=== PATIENT | male | born 1950 | race African-American/Black ===

== ENCOUNTER 2016-03-17 16:32 | Inpatient (IN) | payer OTHER ==
[~2016-03-17] VITALS: Ht 175.3 cm; Wt 68.2 kg
[2016-03-17 17:31] LABS: BASOPHILS 0.3 % (0.0-2.0); EOSINOPHILS 1.7 % (0-7); HEMATOCRIT 44.5 % (42.0-54.0); HEMOGLOBIN 14.7 g/dL (13.5-17.5); IMMATURE GRANULOCYTES 0.6 % (0-5); LYMPHOCYTES 21.3 % (15-50); MCV 96.7 fL (80.0-100.0); MEAN PLATELET VOLUME 10.7 fL (7.4-10.4); MONOCYTES 6.1 % (2-11); PLATELET COUNT 201 10x3/uL (130-400); RDW 14.4 % (11.5-14.5); WBC 7.2 10x3/uL (4.8-10.8)
[2016-03-17 17:59] LABS: ALBUMIN 4.2 g/dL (3.4-5.0); ALKALINE PHOSPHATASE 61 U/L (46-116); ALT (SGPT) 25 U/L (10-68); BILIRUBIN - TOTAL 0.47 mg/dL (0.2-1.3); CALC OSMOLALITY 282 mosm/kg (275-300); CALCIUM 8.9 mg/dL (8.5-10.1); CARBON DIOXIDE 31.8 mmol/L (21.0-32.0); CHLORIDE - SERUM 104 mmol/L (98-107); CREATININE - SERUM 0.8 mg/dL (0.6-1.3); GLUCOSE 91 mg/dL (74-106); PROTEIN - SERUM 7.3 g/dL (6.4-8.2); SODIUM 142 mmol/L (136-145); UREA NITROGEN 12 mg/dL (7-18); eGFR NON AFRICAN AMERICAN > 90 mL/min (90-120)
[2016-03-17 18:55] LABS: CREATINE KINASE 416 UL (21-232); PRO BNP 398 pg/mL (0-125)
[2016-03-17 18:56] LABS: TROPONIN-I < 0.017 ng/mL (0.000-0.060)
[2016-03-17 18:57] LABS: CKMB 3.9 U/L (0.0-3.6)
--- NOTE | 2016-03-17 19:50 | NUR ---
RECEIVED PATIENT FROM ER. NO VISIBLE SIGNS OF DISTRESS. BED IN LOWEST POSTION, CALL LIGHT WITHIN REACH, FALL BAND ON, AND BED ALARM ON.
[2016-03-18 03:51] VITALS: BP 196/108; Ht 175.3 cm; Wt 68.2 kg
[2016-03-18 04:00] VITALS: BP 147/80
[2016-03-18 08:09] VITALS: BP 136/76
--- NOTE | 2016-03-18 08:16 | NUR ---
AWAKE AND ALERT. ORIENTED X3. NO C/O THIS AM. LUNGS ARE CLEAR BILATERALLY, NO COUGH NOTED. SKIN IS INTACT WITHOUT REDNESS EXCEPT ABRASIONS TO BACK OF HEAD, LEFT ELBOW AND SHOULDER. DENIES NEEDS. SL TO LEFT FOREARM IS PATENT WITHOUT REDNESS AT INSERTION SITE.
--- NOTE | 2016-03-18 10:00 | NUR ---
ATE ALL HE WANTED OF BREAKFAST. DENIES NEEDS. TOOK AM MEDS WITHOUT DIFFICULTY. FAMILY AT BEDSIDE.
[2016-03-18 11:33] LABS: BASOPHILS 0.1 % (0.0-2.0); EOSINOPHILS 0.6 % (0-7); HEMATOCRIT 44.7 % (42.0-54.0); HEMOGLOBIN 15.1 g/dL (13.5-17.5); IMMATURE GRANULOCYTES 0.1 % (0-5); LYMPHOCYTES 23.4 % (15-50); MCH 32.3 pg (26.0-34.0); MCHC 33.8 g/dL (31.0-37.0); MCV 95.5 fL (80.0-100.0); MEAN PLATELET VOLUME 10.5 fL (7.4-10.4); MONOCYTES 6.6 % (2-11); NEUTROPHILS 69.2 % (40-80); PLATELET COUNT 214 10x3/uL (130-400); RBC 4.68 10x6/uL (4.20-6.10); RDW 14.5 % (11.5-14.5); WBC 7.1 10x3/uL (4.8-10.8)
[2016-03-18 11:39] LABS: ALKALINE PHOSPHATASE 61 U/L (46-116); ALT (SGPT) 22 U/L (10-68); CALC OSMOLALITY 279 mosm/kg (275-300); CALCIUM 9.1 mg/dL (8.5-10.1); CARBON DIOXIDE 26.8 mmol/L (21.0-32.0); CHLORIDE - SERUM 103 mmol/L (98-107); GLUCOSE 89 mg/dL (74-106); POTASSIUM - SERUM 3.6 mmol/L (3.5-5.1); PROTEIN - SERUM 7.4 g/dL (6.4-8.2); SODIUM 141 mmol/L (136-145); UREA NITROGEN 13 mg/dL (7-18); eGFR NON AFRICAN AMERICAN 80 mL/min (90-120)
[2016-03-18 11:44] VITALS: BP 143/71
[2016-03-18 15:55] VITALS: BP 118/82
--- NOTE | 2016-03-18 16:40 | NUR ---
Patient Name: SANFORD GUALLPA Admission Status: ER Accout number: [id number] Admission Date: 03-17-2016 : 1950 Admission Diagnosis: Attending: CRISTOBAL Current LOS: 1 Anticipated DC Date: 03-20-2016 Planned Disposition: Home Primary Insurance: MULTIPLAN Discharge Planning Comments: CM MET WITH PATIENT AND SISTER (SYEDA MASCORRO) REGARDING D/C NEEDS AND PLANS. PATIENTS SISTER ANSWERED QUESTIONS - PATIENT WAS SLEEPING. PATIENT HAS NO STEPS OR STAIRS AT HIS HOME. PATIENT IS INDEPENDENT WITH HIS CARE AND HAS NO DME AT HOME. PATIENTS PCP IS AT THE [facility] IN [place] AND PHARMACY WILL BE [facility]. PATIENT DOES NOT KNOW IF HOME HEALTH MIGHT BE NEEDED. CM WILL CONTINUE TO FOLLOW PATIENT WITH D/C NEEDS AND PLANS. [facility] [address] [facility]- [phone] SYEDA MASCORRO (SISTER) [phone] [employer]ding Equipment Sales Representative: Annamarie Ruff Is the patient Alert and Oriented? Yes 0 * How many steps to enter\exit or inside your home? 0 0 * [facility] [place] [facility] * Pharmacy [facility] 0 * Preadmission Environment Home Alone 0 * ADLs Independent 0 * Equipment None 0 * List name and contact numbers for known caregivers / representatives who currently or will assist patient after discharge: SYEDA MASCORRO (SISTER) [phone] * Community resources currently utilized None 0 * Additional services required to return to the preadmission environment? Yes 0 * Can the patient safely return to the preadmission environment? Yes 0 * Has this patient been hospitalized within the prior 30 days at any hospital? No 0 Grand Total: 0
[2016-03-18 21:14] VITALS: BP 143/74
--- NOTE | 2016-03-19 03:00 | NUR ---
PATIENT SLEEPING IN SEMI-FOWLERS POSITION. NO VISIBLE SIGNS OF DISTRESS.
[2016-03-19 04:00] VITALS: BP 156/83
[2016-03-19 06:07] LABS: BASOPHILS 0.2 % (0.0-2.0); EOSINOPHILS 2.2 % (0-7); HEMATOCRIT 44.2 % (42.0-54.0); IMMATURE GRANULOCYTES 0.2 % (0-5); LYMPHOCYTES 33.1 % (15-50); MCH 32.1 pg (26.0-34.0); MCHC 33.9 g/dL (31.0-37.0); MCV 94.4 fL (80.0-100.0); MEAN PLATELET VOLUME 10.5 fL (7.4-10.4); NEUTROPHILS 55.3 % (40-80); PLATELET COUNT 207 10x3/uL (130-400); RBC 4.68 10x6/uL (4.20-6.10); RDW 14.2 % (11.5-14.5)
[2016-03-19 06:38] LABS: ALBUMIN 3.6 g/dL (3.4-5.0); ALKALINE PHOSPHATASE 54 U/L (46-116); ALT (SGPT) 20 U/L (10-68); BILIRUBIN - TOTAL 0.58 mg/dL (0.2-1.3); CALC OSMOLALITY 278 mosm/kg (275-300); CALCIUM 8.5 mg/dL (8.5-10.1); CARBON DIOXIDE 29.9 mmol/L (21.0-32.0); CHLORIDE - SERUM 104 mmol/L (98-107); CKMB 2.1 U/L (0.0-3.6); CREATINE KINASE 259 UL (21-232); CREATININE - SERUM 0.9 mg/dL (0.6-1.3); GLUCOSE 79 mg/dL (74-106); POTASSIUM - SERUM 4.2 mmol/L (3.5-5.1); PROTEIN - SERUM 6.6 g/dL (6.4-8.2); SODIUM 140 mmol/L (136-145); TROPONIN-I < 0.017 ng/mL (0.000-0.060); UREA NITROGEN 15 mg/dL (7-18); eGFR NON AFRICAN AMERICAN 90 mL/min (90-120)
--- NOTE | 2016-03-19 07:00 | NUR ---
REPORT RECIEVED ASSUMED CARE. PATIENT IN BED WITH IV INTACT. NO COMPLAINTS AT THIS TIME. CALL LIGHT WITHIN REACH.
--- NOTE | 2016-03-19 07:00 | NUR ---
REPORT RECIEVED ASSUMED CARE. PATIENT IN BED WITH IV INTACT. NO COMPLAINTS AT THIS TIME. CALL LIGHT WITHIN REACH.
[2016-03-19 07:58] VITALS: BP 161/88
--- NOTE | 2016-03-19 09:30 | NUR ---
PATIENT SITTING UP IN CHAIR WITH NO COMPLAINTS AT THIS TIME. IV INTACT. CALL LIGHT WITHIN REACH. BSCDS ON AND WORKING.
--- NOTE | 2016-03-19 11:30 | NUR ---
PATIENT SITTING UP IN CHAIR WITH IV INTACT. NO COMPLAINTS. FAMILY AT BEDSIDE. CALL LIGHT WITHIN REACH.
[2016-03-19 12:09] LABS: CKMB 2.2 U/L (0.0-3.6)
[2016-03-19 12:10] LABS: TROPONIN-I < 0.017 ng/mL (0.000-0.060)
[2016-03-19 12:17] VITALS: BP 165/90
[2016-03-19 15:53] VITALS: BP 165/84
--- NOTE | 2016-03-19 16:16 | NUR ---
PATIENT SITTING UP IN CHAIR WITH NO COMPLAINTS AT THIS TIME. IV INTACT. FAMILY AT BEDSIDE. CALL LIGHT WITHIN REACH.
--- NOTE | 2016-03-19 18:46 | NUR ---
PATIENT SITTING UP ON THE SIDE OF THE BED. NO COMPLAINTS AT THIS TIME. FAMILY AT BEDSIDE. CALL LIGHT WITHIN REACH.
[2016-03-19 20:00] VITALS: BP 156/74
--- NOTE | 2016-03-19 20:00 | NUR ---
ASSESSMENT AND NEURO CHECKS DONE. PT IS ALERT/ORIENTED X3 YEH. BULB SORTER EQUAL. IV APTENT LEFT FOREARM SALINE LOCK. PT HAS BRUISE AREA TO RT EYE. AND ABRASIONS TO HEAD AND SHOULDER. TELN. SHOWS SB WITH HR 56.
--- NOTE | 2016-03-19 21:00 | NUR ---
MEDS GIVEN PER APR. UP AD TEA IN ROOM. VOIDS WELL IN URINAL. RELATIVE AT BEDSIDE.
[2016-03-20] VITALS: BP 166/91
--- NOTE | 2016-03-20 00:17 | NUR ---
RESTING QUIETLY RESPIRATIONS WITH EASE AND UNLABORED. NO NEURO CHANGES.
[2016-03-20 04:00] VITALS: BP 173/79
[2016-03-20] MEDS ORDERED: PROSCAR5 MG (04:16)
[2016-03-20 05:31] LABS: BASOPHILS 0.4 % (0.0-2.0); EOSINOPHILS 2.2 % (0-7); HEMATOCRIT 43.1 % (42.0-54.0); HEMOGLOBIN 14.4 g/dL (13.5-17.5); IMMATURE GRANULOCYTES 0.2 % (0-5); LYMPHOCYTES 35.2 % (15-50); MCHC 33.4 g/dL (31.0-37.0); MCV 95.8 fL (80.0-100.0); MEAN PLATELET VOLUME 10.9 fL (7.4-10.4); MONOCYTES 10.7 % (2-11); NEUTROPHILS 51.3 % (40-80); PLATELET COUNT 202 10x3/uL (130-400); RDW 14.1 % (11.5-14.5); WBC 5.4 10x3/uL (4.8-10.8)
[2016-03-20 06:37] LABS: ALBUMIN 3.5 g/dL (3.4-5.0); ALKALINE PHOSPHATASE 52 U/L (46-116); ALT (SGPT) 18 U/L (10-68); BILIRUBIN - TOTAL 0.38 mg/dL (0.2-1.3); CALC OSMOLALITY 282 mosm/kg (275-300); CALCIUM 8.8 mg/dL (8.5-10.1); CARBON DIOXIDE 29.5 mmol/L (21.0-32.0); CHLORIDE - SERUM 104 mmol/L (98-107); CREATINE KINASE 219 UL (21-232); CREATININE - SERUM 0.9 mg/dL (0.6-1.3); GLUCOSE 79 mg/dL (74-106); POTASSIUM - SERUM 3.9 mmol/L (3.5-5.1); PROTEIN - SERUM 7.1 g/dL (6.4-8.2); SODIUM 142 mmol/L (136-145); UREA NITROGEN 15 mg/dL (7-18); eGFR NON AFRICAN AMERICAN 90 mL/min (90-120)
--- NOTE | 2016-03-20 07:00 | NUR ---
REPORT RECIEVED ASSUMED CARE. PATIENT IN BED WITH IV INTACT. NO COMPLAINTS. CALL LIGHT WITHIN REACH.
[2016-03-20 07:51] VITALS: BP 169/88
[2016-03-20] MEDS ORDERED: PROTONIX40 MG PO (11:27)
[2016-03-20] MEDS ORDERED: NORVASC2.5 MG PO (11:27)
[2016-03-20] MEDS ORDERED: METOPROLOL TART50 MG PO (11:27)
--- NOTE | 2016-03-20 11:33 | NUR ---
CM REASSESSMENT NOTE: PATIENT STATED HE HAD NO NEEDS AND DENIED HOME HEALTH FOR DISCHARGE TODAY. PATIENTS SISTER (SYEDA) IS AT BEDSIDE AND WILL DRIVE PATIENT HOME.
--- NOTE | 2016-03-20 15:35 | NUR ---
DR. TEIXEIRA STATED OK TO DC WITH PT BP 161/88.
--- NOTE | 2016-03-20 15:42 | NUR ---
PATIENT RECIEVED DISCHARGE INSTRUCTIONS. VERBALIZED UNDERSTANDING. NO QUESTIONS AT THIS TIME. FAMILY AT BEDSIDE. IV REMOVED WITH CATH TIP INTACT. EXPLAINED MEDS TO PATIENT AND SISTER. FLU AND PNX VACCINE GIVEN ORDERED. NO PROBLEMS OR QUESTIONS AT THIS TIME. CALL LIGHT WITHIN REACH.
[2016-03-20 15:44] VITALS: BP 167/88
== END 2016-03-20 15:45 | disposition home or self-care (01) | DRG 304 ==
LOC: D.ER 16:32 → D.MS 19:46 → OBSVTIME 19:46 → D.MS 19:46
PROVIDERS: Emergency Medicine; ADMIT Family Medicine
DX: I16.0 Hypertensive urgency (principal); I61.4 Nontraumatic intracerebral hemorrhage in cerebellum; R55 Syncope and collapse; S01.91XA Laceration without foreign body of unspecified part of head, initial encounter; W17.89XA Other fall from one level to another, initial encounter; S01.111A Laceration without foreign body of right eyelid and periocular area, initial encounter; F17.200 Nicotine dependence, unspecified, uncomplicated

== ENCOUNTER 2016-10-09 14:03 | Emergency (ER) | payer OTHER ==
[2016-03-18 03:51] VITALS: BMI 22.2
[~2016-10-09 14:03] MED LIST: METOPROLOL TART50 MG PO; NORVASC2.5 MG PO; PROSCAR5 MG; PROTONIX40 MG PO
[2016-10-09 15:31] LABS: BASOPHILS 0.7 % (0-2); EOSINOPHILS 2.5 % (0-7); HEMATOCRIT 44.8 % (42.0-54.0); HEMOGLOBIN 15.1 g/dL (13.5-17.5); IMMATURE GRANULOCYTES 0.2 % (0-5); LYMPHOCYTES 43.6 % (15-50); MCH 32.3 pg (26.0-34.0); MCHC 33.7 g/dL (31.0-37.0); MCV 95.7 fL (80.0-100.0); MEAN PLATELET VOLUME 9.7 fL (7.4-10.4); MONOCYTES 8.4 % (2-11); NEUTROPHILS 44.6 % (40-80); PLATELET COUNT 203 10x3/uL (130-400); RBC 4.68 10x6/uL (4.20-6.10); WBC 4.4 10x3/uL (4.8-10.8)
[2016-10-09 15:33] LABS: APPEARANCE CLEAR (CLEAR); BILIRUBIN NEGATIVE (NEGATIVE); COLOR STRAW (YELLOW); GLUCOSE NEGATIVE (NEGATIVE); KETONE NEGATIVE (NEGATIVE); LEUKOCYTE ESTERASE NEGATIVE (NEGATIVE); NITRITE NEGATIVE (NEGATIVE); PROTEIN NEGATIVE (NEGATIVE); SPECIFIC GRAVITY 1.005 (1.005-1.020); UROBILINOGEN NORMAL (NORMAL)
[2016-10-09 15:35] LABS: BACTERIA FEW /hpf (NONE SEEN); EPITHELIAL CELLS RARE /hpf (0-5); RED CELLS - URINE 0-5 /hpf (0-5); WHITE CELLS - URINE OCC /hpf (0-5)
[2016-10-09 15:38] LABS: INR 0.98 (0.85-1.17); PROTIME 12.8 SECONDS (11.6-15.0)
[2016-10-09 15:45] LABS: ALBUMIN 4.2 g/dL (3.4-5.0); ANION GAP 12.5 mmol/L (8-16); BILIRUBIN - TOTAL 0.35 mg/dL (0.2-1.3); CALCIUM 9.2 mg/dL (8.5-10.1); CREATININE - SERUM 1.2 mg/dL (0.6-1.3); POTASSIUM - SERUM 3.5 mmol/L (3.5-5.1); PROTEIN - SERUM 8.2 g/dL (6.4-8.2)
[2016-10-09 16:10] LABS: MAGNESIUM - SERUM 2.1 mg/dL (1.8-2.4)
== END 2016-10-09 17:50 | disposition home or self-care (01) ==
LOC: D.ER 14:03
PROVIDERS: Emergency Medicine; Nurse Practitioner Family
DX: S39.012A Strain of muscle, fascia and tendon of lower back, initial encounter (principal); X58.XXXA Exposure to other specified factors, initial encounter; E16.2 Hypoglycemia, unspecified; I10 Essential (primary) hypertension; M54.5 Low back pain

== ENCOUNTER → 2018-11-24 13:50 | Outpatient (CLI) | payer OTHER ==
[2016-03-18 03:51] VITALS: BMI 22.2
== END | disposition home or self-care (01) ==
LOC: D.MRI 10-11 13:00
PROVIDERS: ATTEND Family Medicine
DX: R97.20 Elevated prostate specific antigen [PSA] (principal)

== ENCOUNTER 2020-05-21 18:56 | Emergency (ER) | payer OTHER ==
[~2020-05-21] VITALS: Ht 175.3 cm; Wt 63.6 kg
[2020-05-21 19:08] VITALS: Ht 175.3 cm; Wt 63.6 kg
[2020-05-21 19:30] LABS: BASOPHILS 0.3 % (0-2); EOSINOPHILS 0.7 % (0-7); HEMATOCRIT 39.6 % (42.0-54.0); HEMOGLOBIN 13.3 g/dL (13.5-17.5); IMMATURE GRANULOCYTES 0.3 % (0-5); LYMPHOCYTE ABS# 1.73 10x3/uL (1.32-3.57); LYMPHOCYTES 28.5 % (15-50); MCH 31.2 pg (26.0-34.0); MCHC 33.6 g/dL (31.0-37.0); MEAN PLATELET VOLUME 9.3 fL (7.4-10.4); MONOCYTES 7.6 % (2-11); NEUTROPHILS 62.6 % (40-80); RBC 4.26 10x6/uL (4.20-6.10); RDW 14.7 % (11.5-14.5); WBC 6.1 10x3/uL (4.8-10.8)
[2020-05-21 19:41] LABS: CALC OSMOLALITY 281 mosm/kg (275-300); CALCIUM 9.8 mg/dL (8.5-10.1); CARBON DIOXIDE 28.9 mmol/L (21.0-32.0); CHLORIDE - SERUM 101 mmol/L (98-107); CREATININE - SERUM 1.1 mg/dL (0.6-1.3); GLUCOSE 115 mg/dL (74-106); POTASSIUM - SERUM 3.6 mmol/L (3.5-5.1); SODIUM 140 mmol/L (136-145); UREA NITROGEN 17 mg/dL (7-18); eGFR NON AFRICAN AMERICAN 71 mL/min (90-120)
[2020-05-21 19:47] LABS: PLATELET COUNT 310 10x3/uL (130-400)
[2020-05-21 20:16] LABS: APTT 36.8 SECONDS (22.8-39.4); INR 1.16 (0.85-1.17); PROTIME 13.7 SECONDS (11.6-15.0)
[2020-05-21 20:17] LABS: ALBUMIN 4.2 g/dL (3.4-5.0); ALKALINE PHOSPHATASE 80 U/L (30-120); ALT (SGPT) 18 U/L (10-68); BILIRUBIN - TOTAL 0.47 mg/dL (0.2-1.3); C-REACTIVE PROTEIN 0.6 mg/dL (0.0-0.9); CREATINE KINASE 479 UL (21-232); D-DIMER-QUANTITATIVE 0.74 ug/mLFEU (0.20-0.54); PRO BNP 126 pg/mL (0-125); PROTEIN - SERUM 8.2 g/dL (6.4-8.2)
[2020-05-21 20:18] LABS: CKMB 2.8 U/L (0.0-3.6)
[2020-05-22 00:29] VITALS: BP 139/89
[2020-05-23] MEDS ORDERED: LISINOPRIL-HCT1 EAC4 PO (05:01)
[2020-05-23] MEDS ORDERED: ULTRAM50 MG PO (05:01)
[2020-05-23] MEDS ORDERED: NORVASC10 MG PO (05:01)
[2020-05-23] MEDS ORDERED: BAYER CHEWABLE81 MG PO (05:01)
== END 2020-05-22 00:30 | disposition left against medical advice (07) ==
LOC: D.ER 18:56
PROVIDERS: Family Medicine
DX: I73.9 Peripheral vascular disease, unspecified (principal); I10 Essential (primary) hypertension

== ENCOUNTER 2020-05-23 04:41 | Inpatient (IN) | payer OTHER ==
[2020-05-23] VITALS (10 sets, daily range): BP systolic 97–124; BP diastolic 44–63; BMI 17.4
[~2020-05-23] VITALS: Ht 182.9 cm; Wt 58.1 kg
--- NOTE | ~2020-05-23 | HEMODYNAMI ---
PATIENT:SANFORD GUALLPA MEDICAL RECORD: [id number] : 54 LOCATION:[place] [address] ADMISSION DATE: 05/23/20 Generatedon:115:47 Patient name: SANFORD GUALLPA Patient #: [id number] SSN: DO B: 1950 Date of study: 05/23/2020 Page: Of Hemodynamic Procedure Report Patient Data Patient Demographics Procedure consent was obtained First Name: SANFORD Gender: Male Last Name: RAMU : 1950 Middle Initial: A Age: 70 year(s) Patient #: [id number] Race: Black Additional ID: [id number] Contact details Address: [place] [address] State: [place] City: [place] Zip code: [address] Past Medical History Allergies: No known allergies Admission Admission Data Admission Date: 05/23/2020 Admission Time: 4:59 Room #: [facility] Procedure Procedure Types Cath Procedure Peripheral Cath Diagnostic Procedure Abd/Extremity Extremities Bilat Lower Extremity Procedure Description Procedure Date Procedure Date: 05/23/2020 Procedure Start Time: 14:17 Procedure Staff Name Function Delio Roy MD Performing Physician ALEIDA FRIED RT Monitor Brandin Tse RT Scrub Radha Johnson RN Nurse Shawnee Montes RN Nurse Quinn Sommer Jr, CRNA Additional personnel Procedure Data Cath Procedure Fluoroscopy Diagnostic fluoroscopy Total fluoroscopy Time: time: 17.7 min 17.7 min Contrast Material Contrast Material Type Amount (ml) Isovue 300 115 Entry Location Entry Primary Successful Side Size Upsize 1 Upsize Entry Closure Keenan ccessful Closure Location (Fr) (Fr) 2 (Fr) Remarks Device Remarks Femoral Left 5 Fr 6 Fr 6 Fr Exoseal artery Mid-Length Short Procedure Medications Medication Administration Route Dosage Heparin Flush Bag added to field 3 bags (1000units/500ml NS) Lidocaine 1% added to field 20 Heparin Bolus I.V. 5000 units Heparin Bolus I.V. 1000 units Nitroglycerin IC/IA I.A. 300 mcg Hemodynamics Rest Heart Rate: 54 (bpm) Snapshots Pre Cath Intra NCS Post Cath Vital Signs Time Heart Resp SPO2 etCO2 NIBP (mmHg) Rhythm Pain Sedation Rate (ipm) (%) (mmHg) Status Level (bpm) 13:55:26 50 8 100 37.9 119/63(100) NSR 0 (11) 10(A) , No pain 13:59:42 55 7 100 0.7 No Cuff NSR 0 (11) 10(A) , No pain 14:04:02 53 7 100 44.6 135/65(104) NSR 0 (11) 10(A) , No pain 14:08:14 64 9 100 6.7 111/71(101) NSR 0 (11) 10(A) , No pain 14:13:11 55 10 99 46.1 131/74(96) NSR 0 (11) 10(A) , No pain 14:17:23 60 7 100 13.3 142/68(112) NSR 0 (11) 10(A) , No pain 14:21:37 62 18 100 40.9 127/70(102) NSR 0 (11) 10(A) , No pain 14:25:47 65 10 100 39.4 119/70(97) NSR 0 (11) 10(A) , No pain 14:29:51 57 10 100 40.9 135/74(113) NSR 0 (11) 10(A) , No pain 14:34:03 62 9 100 46.9 120/72(92) NSR 0 (11) 10(A) , No pain 14:38:06 63 12 100 33.5 130/76(110) NSR 0 (11) 10(A) , No pain 14:42:14 65 11 100 36.4 138/77(102) NSR 0 (11) 10(A) , No pain 14:47:13 62 9 100 1.4 Measuring NSR 0 (11) 10(A) , No pain 14:47:34 62 8 100 0.7 137/80(114) NSR 0 (11) 10(A) , No pain 14:51:44 56 11 100 37.1 152/79(128) NSR 0 (11) 10(A) , No pain 14:55:58 58 14 99 38.6 146/85(124) NSR 0 (11) 10(A) , No pain 15:00:12 70 13 99 0 149/80(110) NSR 0 (11) 10(A) , No pain 15:04:26 60 11 100 39.4 145/82(120) NSR 0 (11) 10(A) , No pain 15:08:40 62 12 100 34.9 147/76(115) NSR 0 (11) 10(A) , No pain 15:12:54 61 13 100 23.7 149/76(120) NSR 0 (11) 10(A) , No pain 15:17:06 66 11 100 40.9 152/86(104) NSR 0 (11) 10(A) , No pain 15:21:19 65 12 100 17.1 160/84(109) NSR 0 (11) 10(A) , No pain 15:25:40 61 10 100 26 141/75(119) NSR 0 (11) 10(A) , No pain 15:29:54 61 11 100 26 129/71(95) NSR 0 (11) 10(A) , No pain 15:33:59 63 12 100 32.6 147/81(116) NSR 0 (11) 10(A) , No pain 15:38:17 61 11 100 0.7 120/67(84) NSR 0 (11) 10(A) , No pain 15:42:25 53 9 100 40.1 122/69(95) NSR 0 (11) 10(A) , No pain 15:46:33 52 11 100 38.5 128/73(90) NSR 0 (11) 10(A) , No pain Medications Time Medication Route Dose Verified Delivered Reason Notes Effec tiveness by by 14:13:30 Heparin Flush added 3 M J Long M J Long used for Bag to bags MD PRADHAN procedure (1000units/500ml field NS) 14:13:44 Lidocaine 1% added 20ml M J Long M J Long used for to vial MD PRADHAN procedure field 14:28:59 Heparin Bolus I.V. 5000 M J Long Radha used for units MD Johnson executive secretary social welfare 14:57:33 Heparin Bolus I.V. 1000 M J Long Radha used for units MD Johnson executive secretary social welfare 15:28:21 Nitroglycerin I.A. 300 M J Kirill Roy IC/IA veronica PRADHAN MD Procedure Log Time Note 13:54:14 Brandin Carmencita RT (R) (CV) sent for patient. Start room use. 13:54:15 Time tracking: Regular hours (M-F 7:00 - 5:00) 13:54:20 Plan of Care:Hemodynamics will remain stable., Cardiac rhythm will remain stable., Comfort level will be maintained., Respiratory function will remain adequate., Patient/ family verbilizes understanding of procedure., Procedure tolerated without complication., Recovers from procedure without complications.. 13:54:24 Patient received from Reocar II to IR Alert and oriented. Tansferred to table in Supine position. 13:54:26 Signed procedure consent form obtained from patient. 13:54:27 Warm blankets applied, and eloise hugger turned on for patient comfort. 13:54:27 Correct patient and procedure confirmed by team. 13:54:28 ECG and BP/O2 sat monitors applied to patient. 13:54:28 Vital chart was started 13:54:29 Baseline sample Acquired. 13:54:31 Full Disclosure recording started 13:54:32 - 13:54:37 H&P Date Dictated: 05/23/2020 Within 30 days and on chart.. 13:54:38 Pre-procedure instructions explained to patient. 13:54:38 Pre-op teaching completed and patient verbalized understanding. 13:54:41 Patient NPO since Midnight. 13:54:51 Patient allergic to No known allergies 13:54:59 Is the patient allergic to Iodine/contrast media? No. 13:55:09 Quinn Sommer Jr, CRNA present and monitoring patient for TIVA. 13:56:46 Is patient on blood thinner?Yes 13:56:49 ACC The patient was administered the following blood thiners within the last 24 hours: ACCAspirin 13:56:57 Patient diabetic? No. 13:56:59 - 13:57:00 ----see anethesia note for Pre-sedation anethesia assessment.---- 13:57:32 IV patent on arrival in right hand with 0.9% NaCl at KVO. 13:58:04 Left groin area was prepped with chlora-prep and draped in sterile fashion 13:58:06 Alarms reviewed by RChris N. 13:58:06 Sharps counted by scrub and verified by RChrisNChris 13:58:07 - 13:58:10 Use device set IR Diagnostic 13:58:11 ACIST Hand Control (41922) opened to sterile field. 13:58:12 ACIST Syringe (84050) opened to sterile field. 13:58:12 ACIST Manifold (78601) opened to sterile field. 13:58:12 Bag Decanter () opened to sterile field. 13:58:13 Sterile Angiographic Pack opened to sterile field. 13:58:13 Tegaderm 4 x 4 (1626W) opened to sterile field. 13:59:16 DOC Extension wire (75552) opened to sterile field. 13:59:17 CHOICE PT Extra Support J 300cm guide wire ([id number]) opened to steril e field. 13:59:17 SAAB 260 wire (O58114) opened to sterile field. 13:59:17 TORQUE DEVICE PLASTIC .038 ( TD01) opened to sterile field. 13:59:18 GLIDE WIRE ANGLE 260cm (IS5097) opened to sterile field. 13:59:19 MICROPUNCTURE 4FR Cook (P17606) opened to sterile field. 13:59:19 SHEATH 5FR [place] (QRA272) opened to sterile field. 13:59:19 TUBING High Pressure Extension (IABP) opened to sterile field. 13:59:23 - 14:10:42 Pre procedure: right dorsailis pedis pulse Doppler 14:10:46 Pre procedure: left dorsailis pedis pulse 0-Absent 14:10:49 Pre procedure: right posterior tibial pulse Doppler 14:10:51 Pre procedure: left posterior tibial pulse Doppler 14:13:18 Physician arrived 14:13:30 Heparin Flush Bag (1000units/500ml NS) 3 bags added to field was administered by Delio Roy MD; used for procedure; Verbal order read back and verified. 14:13:44 Lidocaine 1% 20ml vial added to field was administered by Delio Roy MD; used for procedure; Verbal order read back and verified. 14:14:24 --------ALL STOP TIME OUT------ 14:14:24 Final Timeout: patient, procedure, and site verified with staff and physician. All members of the team are in agreement. 14:14:27 Left groin site verified by team. 14:14:40 2) 60-89 Mildly reduced kidney function, and other findings (as for stage 1) point to kidney disease. 14:16:20 Maximum allowable contrast dose (3.7 X eGFR X 0.75)166.5 ml. 14:16:27 Sedation plan: TIVA Medication:Propofol 14:16:32 Procedure started. 14:17:25 Arterial access obtained using ultrasound guidance. 14:17:49 Local anesthetic to left femerol artery with Lidocaine 1% by Delio Roy MD.INITIAL ACCESS ONLY 14:18:46 Access obtained with 4Fr micropunture. 14:22:16 A 5 Fr sheath was inserted into the Left Femoral artery 14:23:36 Abdominal angiogram was performed. 14:26:46 GLIDE CATHETER 5FR ANGLED 65cm (CG507) opened to sterile field. 14:28:59 Heparin Bolus 5000 units I.V. was administered by Radha Johnson RN; used for procedure; Verbal order read back and verified. 14:31:54 Sheath upsized to a 6 Fr Mid-Length. 14:32:24 CXI SUPPORT .035 135 CM STR catheter ([id number]) opened to sterile field. 14:32:25 SHEATH 6FR Destination (RSR01) opened to sterile field. 14:36:06 Navicross Support Straight .035 150cm catheter (UK34277) opened to sterile field. 14:44:54 Abdominal angiogram w/ runoff was performed. 14:50:55 Inflate balloon Inflation number: 1 A CHOCOLATE BALLOON 4 X 120 ([id number]) was prepped and advanced across the Proximal Popliteal, Right -1, then inflated to 9 ROGER . 14:57:33 Heparin Bolus 1000 units I.V. was administered by Radha Johnson RN; used for procedure; Verbal order read back and verified. 15:03:24 Inflate balloon Inflation number: 1 A SHOCKWAVE BALLOON 6.5 X 60 ([id number]) was prepped and advanced across the Proximal Femoral, Right -1, then inflated to 4 ROGER. 15:28:21 Nitroglycerin IC/IA 300 mcg I.A. was administered by Delio Roy MD; ; Verbal order read back and verified. 15:31:54 Sheath upsized to a 6 Fr Short. 15:31:54 Sheath removed intact; hemostasis achieved with Exoseal to the Left Femoral artery. 15:32:12 EXOSEAL 6Fr (EX600) opened to sterile field. 15:36:56 Procedure ended.(Physican Out) 15:37:09 Fluoroscopy time 17.70 minutes. 15:37:18 Contrast amount:Isovue 300 115ml. 15:37:30 Maximum allowable dose exceeded? No. 15:37:35 Post-op/insertion site Left Femoral artery dressed using a 4 x 4 and Tegaderm. 15:37:42 Post right femoral artery:stable, soft, clean and dry 15:37:46 Procedure and supply charges have been captured, reviewed, submitted an d are correct. 15:46:26 Vital chart was stopped 15:46:30 See physician's report for complete and final results. 15:46:34 Patient transfered to [facility] with Bed. 15:46:39 End room use (Document Last) Intervention Summary Intervention Notes Time ActionType Lesion and Equipment Used Action# Pressure Duratio n Attributes 14:50:55 Inflate Proximal CHOCOLATE BALLOON 4 1 0 00:00 balloon Popliteal, X 120 Right ([id number]) 15:03:24 Inflate Proximal SHOCKWAVE BALLOON 6 1 0 00:00 balloon Femoral, X 60 Right ([id number]) Device Usage Item Name Manufacture Quantity Catalog Number [facility] Part C urrent Minimal Lot# / Charge Number Stock Stock Serial# Code ACIST Hand Control Acist 1 [id number] 562231 9 98440 5 (57664) [employer] ACIST Syringe Acist 1 88580 101309 660010 9 64280 20 (24171) [employer] Inc ACIST Manifold Acist 1 81247 049335 043868 9 81733 5 (70168) [employer] Systems Inc Bag Decanter (2001S) Microtek 1 2002S 710412 03845 9 82743 5 Medical Inc. Sterile Angiographic Cardinal 1 [id number] 298678 9 56276 5 [employer] Tegaderm 4 x 4 3M 1 1626W 511223 798437 9 69491 5 (1626W) DOC Extension wire Hilario 2 08071 207633 977134 9 50606 5 (32134) Vascular CHOICE PT Extra [place] 1 [id number] 405996 560936 9 44162 5 Support J 300cm Scientific guide wire ([id number]) SAAB 260 wire Cook Medical 1 W64394 010879 568567 9 83489 5 (K96061) TORQUE DEVICE [place] 1 TD01 235255 653030 9 54561 5 PLASTIC .038 ( TD01) Scientific GLIDE WIRE ANGLE Terumo 1 PM1437 158536 860790 9 39407 5 260cm (PP6931) MICROPUNCTURE 4FR Cook [employer] 1 C82036 198066 008926 9 03215 5 Cook (W22229) SHEATH 5FR [place] Terumo 1 YEI006 646356 953897 9 45410 5 (CAU428) TUBING High Pressure Merit 1 [id number] 328228 981935 9 68548 5 Extension (IABP) Medical GLIDE CATHETER 5FR Terumo 1 CG507 007972 9 20148 5 ANGLED 65cm (CG507) CXI SUPPORT .035 135 Cook [employer] 1 F67447 398883 861267 9 87732 5 CM STR catheter (E69907) SHEATH 6FR Terumo 1 RSR01 258727 63954 9 91038 5 Destination (RSR01) Navicross Support Terumo 1 KC07425 351702 992422 9 36664 5 Straight .035 150cm catheter ([id number]) CHOCOLATE BALLOON 4 Medtronic 1 [id number] 352160 9 59625 1 X 120 TW ([id number]) SHOCKWAVE BALLOON 6 SHOCKWAVE 1 [id number] 583222 8037871 9 59221 1 X 60 MEDICAL ([id number]) EXOSEAL 6Fr (EX600) Cardinal 1 EX600 115236 524087 9 89784 10 Health Signature Audit [place] Stage Time Signature Unsigned Intra-Procedure 05/23/2020 ALEIDA FRIED RT 3:46:55 PM (R) [facility] [address] [place] [address]
--- NOTE | ~2020-05-23 | HEMODYNAMI ---
PATIENT:SANFORD GUALLPA MEDICAL RECORD: [id number] : 54 LOCATION:[place] [address] ADMISSION DATE: 05/23/20 Generatedon:114:55 Patient name: SANFORD GUALLPA Patient #: [id number] SSN: DO B: 1950 Date of study: 05/24/2020 Page: Of Hemodynamic Procedure Report Patient Data Patient Demographics Procedure consent was obtained First Name: SANFORD Gender: Male Last Name: RAMU : 1950 Middle Initial: A Age: 70 year(s) Patient #: [id number] Race: Black Additional ID: [id number] Contact details Address: [place] [address] State: [place] City: [place] Zip code: [address] Past Medical History Allergies: No known allergies Admission Admission Data Admission Date: 05/23/2020 Admission Time: 4:59 Room #: [facility] Procedure Procedure Types Cath Procedure Peripheral Cath Diagnostic Procedure Abd/Extremity Extremities Left Lower Ext Arterio Procedure Description Procedure Date Procedure Date: 05/24/2020 Procedure Start Time: 12:14 Procedure Staff Name Function Delio Roy MD Performing Physician Brandin Tse RT Monitor ALEIDA FRIED RT Scrub Radha Johnson RN Nurse Shawnee Montes RN Nurse Rogelio Chicas CRNA Additional personnel Procedure Data Cath Procedure Fluoroscopy Diagnostic fluoroscopy Total fluoroscopy Time: time: 54.4 min 54.4 min Diagnostic fluoroscopy Total fluoroscopy dose: 571 dose: 571 mGy mGy Contrast Material Contrast Material Type Amount (ml) Isovue 300 120 Procedure Medications Medication Administration Route Dosage Heparin Flush Bag added to field 3 bags (1000units/500ml NS) Lidocaine 1% added to field 20 Heparin Bolus I.V. 3000 units Heparin Bolus I.V. 1000 units Refer to Anesthesia Notes for Sedation Medications Heparin Bolus I.V. 1000 units Nitroglycerin IC/IA I.A. 350 mcg Hemodynamics Rest Heart Rate: 67 (bpm) Snapshots Pre Cath Intra NCS Post Cath Vital Signs Time Heart Resp SPO2 etCO2 NIBP (mmHg) Rhythm Pain Sedation Rate (ipm) (%) (mmHg) Status Level (bpm) 12:01:17 64 8 100 40.9 160/84(122) NSR 0 (11) 10(A) , No pain 12:05:41 63 11 100 40.2 129/68(108) NSR 0 (11) 10(A) , No pain 12:09:55 61 9 100 45.4 125/62(99) NSR 0 (11) 10(A) , No pain 12:14:09 62 10 100 45.4 110/57(81) NSR 0 (11) 10(A) , No pain 12:18:13 77 11 100 43.9 120/69(101) NSR 0 (11) 10(A) , No pain 12:22:20 74 11 100 42.4 121/69(97) NSR 0 (11) 10(A) , No pain 12:26:32 74 11 100 41.7 122/56(85) NSR 0 (11) 10(A) , No pain 12:30:40 83 12 99 42.5 136/67(99) NSR 0 (11) 10(A) , No pain 12:34:52 84 12 99 40.2 132/77(104) NSR 0 (11) 10(A) , No pain 12:39:00 88 12 99 42.4 116/79(94) NSR 0 (11) 10(A) , No pain 12:43:06 83 13 99 38 134/70(104) NSR 0 (11) 10(A) , No pain 12:47:18 81 12 99 37.2 123/68(100) NSR 0 (11) 10(A) , No pain 12:51:24 86 13 99 38 125/78(107) NSR 0 (11) 10(A) , No pain 12:56:21 87 13 99 36.5 147/76(115) NSR 0 (11) 10(A) , No pain 13:00:32 88 13 99 37.2 146/83(121) NSR 0 (11) 10(A) , No pain 13:04:44 88 12 99 38.7 147/84(114) NSR 0 (11) 10(A) , No pain 13:08:56 90 13 99 37.2 155/87(126) NSR 0 (11) 10(A) , No pain 13:13:12 92 13 99 38.7 137/79(114) NSR 0 (11) 10(A) , No pain 13:17:24 89 10 99 41.6 142/75(102) NSR 0 (11) 10(A) , No pain 13:21:38 90 11 99 44.6 137/72(115) NSR 0 (11) 10(A) , No pain 13:25:50 92 10 99 46.1 129/76(110) NSR 0 (11) 10(A) , No pain 13:30:04 89 9 99 47.6 117/61(96) NSR 0 (11) 10(A) , No pain 13:34:10 94 9 99 50.6 123/67(101) NSR 0 (11) 10(A) , No pain 13:38:18 96 10 98 51.4 127/70(103) NSR 0 (11) 10(A) , No pain 13:42:28 96 9 99 52.1 124/70(98) NSR 0 (11) 10(A) , No pain 13:46:35 89 11 98 44.7 122/70(99) NSR 0 (11) 10(A) , No pain 13:50:43 90 12 98 42.4 132/72(100) NSR 0 (11) 10(A) , No pain 13:54:51 91 12 98 42.4 137/77(109) NSR 0 (11) 10(A) , No pain 13:59:03 91 12 98 40.9 143/73(114) NSR 0 (11) 10(A) , No pain 14:03:15 92 12 98 41.7 143/83(112) NSR 0 (11) 10(A) , No pain 14:07:25 93 13 98 41.6 147/87(114) NSR 0 (11) 10(A) , No pain 14:11:39 92 12 98 41.7 153/80(120) NSR 0 (11) 10(A) , No pain 14:15:59 90 12 98 41.7 148/71(114) NSR 0 (11) 10(A) , No pain 14:20:13 90 13 98 40.9 150/81(116) NSR 0 (11) 10(A) , No pain 14:24:21 104 13 98 43.1 150/85(111) NSR 0 (11) 10(A) , No pain 14:28:33 107 12 98 48.3 146/88(119) NSR 0 (11) 10(A) , No pain 14:32:43 105 12 98 50.6 149/88(119) NSR 0 (11) 10(A) , No pain 14:36:57 101 98 52.8 135/83(114) NSR 0 (11) 10(A) , No pain 14:41:07 105 11 98 52.8 138/77(113) NSR 0 (11) 10(A) , No pain 14:45:20 101 12 98 49.1 131/71(99) NSR 0 (11) 10(A) , No pain 14:49:28 94 13 98 42.4 144/81(104) NSR 0 (11) 10(A) , No pain 14:53:38 95 16 98 40.9 156/91(126) NSR 0 (11) 10(A) , No pain Medications Time Medication Route Dose Verified Delivered Reason Notes Effec tiveness by by 12:00:50 Heparin Flush added 3 M J Long M J Long used for Bag to bags MD PRADHAN procedure (1000units/500ml field NS) 12:02:06 Lidocaine 1% added 20ml M J Long M J Long used for to vial MD PRADHAN procedure field 12:05:13 Refer to M J Kirill Mallory Anesthesia Notes MD Montes RN for Sedation Medications 12:37:41 Heparin Bolus I.V. 3000 M J Long M J Long used for units MD PRADHAN procedure 13:10:02 Heparin Bolus I.V. 1000 M J Long Shawnee used for units MD Montes surgical elastic knitter hand frame 14:02:02 Heparin Bolus I.V. 1000 M J Long Shawnee used for units MD Montes surgical elastic knitter hand frame 14:21:54 Nitroglycerin I.A. 350 M J Long M J Long used for IC/IA mcg MD PRADHAN procedure Procedure Log Time Note 11:50:49 Rogelio Chicas CRNA present and monitoring patient for TIVA. 11:51:15 Radha Johnson RN sent for patient. Start room use. 11:51:34 Time tracking: Regular hours (M-F 7:00 - 5:00) 11:51:39 Plan of Care:Hemodynamics will remain stable., Cardiac rhythm will remain stable., Comfort level will be maintained., Respiratory function will remain adequate., Patient/ family verbilizes understanding of procedure., Procedure tolerated without complication., Recovers from procedure without complications.. 11:51:47 Patient received from Giggle II to IR Alert and oriented. Tansferred to table in Supine position. 11:51:56 Signed procedure consent form obtained from patient. 11:51:58 Correct patient and procedure confirmed by team. 11:51:59 Full Disclosure recording started 11:52:00 - 11:52:16 H&P Date Dictated: 05/24/2020 Within 30 days and on chart.. 11:52:43 Use device set IR Diagnostic 11:52:44 Tegaderm 4 x 4 (1626W) opened to sterile field. 11:52:45 Sterile Angiographic Pack opened to sterile field. 11:52:46 ACIST Manifold (35648) opened to sterile field. 11:52:46 Bag Decanter () opened to sterile field. 11:52:47 ACIST Syringe (26865) opened to sterile field. 11:52:47 ACIST Hand Control (56627) opened to sterile field. 11:52:52 ECG and BP/O2 sat monitors applied to patient. 11:52:54 - 11:52:55 Pre-procedure instructions explained to patient. 11:52:55 Pre-op teaching completed and patient verbalized understanding. 11:55:06 SEE ANESTHESIA NOTE FOR PRE PROCEDURE ANESHESIA 11:55:54 Right groin area was prepped with chlora-prep and draped in sterile fashion 11:55:55 Alarms reviewed by R. N. 11:55:55 Sharps counted by scrub and verified by R.N. 12:00:03 Vital chart was started 12:00:50 Heparin Flush Bag (1000units/500ml NS) 3 bags added to field was administered by Delio Roy MD; used for procedure; Verbal order read back and verified. 12:02:06 Lidocaine 1% 20ml vial added to field was administered by Delio Roy MD; used for procedure; Verbal order read back and verified. 12:03:26 Pre procedure: right dorsailis pedis pulse Doppler 12:03:31 Pre procedure: right posterior tibial pulse Doppler 12:03:44 Pre procedure: left dorsailis pedis pulse Doppler 12:03:48 Pre procedure: left posterior tibial pulse 0-Absent 12:03:57 Baseline sample Acquired. 12:05:13 Refer to Anesthesia Notes for Sedation Medications was administered by Shawnee Montes RN; ; Verbal order read back and verified. 12:13:30 Physician arrived 12:13:31 --------ALL STOP TIME OUT------ 12:13:31 Final Timeout: patient, procedure, and site verified with staff and physician. All members of the team are in agreement. 12:13:33 Right groin site verified by team. 12:13:37 Fire Safety Assessment: A--An alcohol-based skin anteseptic being used preoperatively., C--Open oxygen or nitrous oxide is being used. 12:14:08 Maximum allowable contrast dose (3.7 X eGFR X 0.75)222.18 ml. 12:14:12 2) 60-89 Mildly reduced kidney function, and other findings (as for stage 1) point to kidney disease. 12:14:25 Procedure started. 12:14:34 Local anesthetic to right femoral artery with Lidocaine 1% by Delio Roy MD.INITIAL ACCESS ONLY 12:15:22 TUBING Contrast Injection High Pressure (VCK726H) opened to sterile field. 12:15:22 GLIDE WIRE ANGLE 260cm (PJ8596) opened to sterile field. 12:15:23 DOUBLE ENDED GUIEDWIRE DOC 145CM (K00322) opened to sterile field. 12:15:23 SHEATH 5FR [place] (QLL584) opened to sterile field. 12:15:24 Micropuncture VSI 4FR kit opened to sterile field. 12:24:04 CHOICE PT Extra Support J 300cm guide wire ([id number]) opened to steril e field. 12:24:12 Angiodynamics Omniflush 5Fr 65cm (74292087) opened to sterile field. 12:28:24 INFLATOR BasixTOUCH (LN3929) opened to sterile field. 12:28:41 TORQUE DEVICE PLASTIC .038 ( TD01) opened to sterile field. 12:30:05 GLIDE CATHETER 5FR ANGLED 65cm (CG507) opened to sterile field. 12:34:56 SHEATH 6FR Destination (RSR01) opened to sterile field. 12:37:41 Heparin Bolus 3000 units I.V. was administered by Delio Roy MD; used for procedure; Verbal order read back and verified. 12:49:25 ROADRUNNER .035 260 glide wire (D47965) opened to sterile field. 12:56:45 GUIDEWIRE V-18 CONTROL ([id number]) opened to sterile field. 13:06:45 Navicross Support Straight .035 150cm catheter (MK69357) opened to sterile field. 13:10:02 Heparin Bolus 1000 units I.V. was administered by Shawnee Montes RN; use d for procedure; Verbal order read back and verified. 13:10:50 CXI SUPPORT .018 150CM ANG catheter (A24289) opened to sterile field. 13:14:00 Inflate balloon Inflation number: 1 A AGATHA CROSS ELITE 1.5 X 40 ([id number]) was prepped and advanced across the Undefined1 , then inflated to 0 ROGER for 0:00 (min:sec) . 13:28:04 3 x 4 shockwave balloon used 13:30:11 Inflate balloon Inflation number: 2 A NANOCROSS ELITE 2.5X40 ([id number]) was prepped and advanced across the Undefined1 , then inflated to 0 ROGER for 0:00 (min:sec) . 13:41:00 Inflate balloon Inflation number: 3 A CHOCOLATE 3.0 x 120 x 150 balloon ([id number]) was prepped and advanced across the Undefined1 , then inflated to 0 ROGER for 0:00 (min:sec) . 13:56:33 Inflate balloon Inflation number: 4 A SHOCKWAVE BALLOON 6 X 60 ([id number]) was prepped and advanced across the Undefined1 , then inflated to 0 ROGER for 0:00 (min:sec) . 14:00:13 STOPCOCK 3-Way Large Bore (K57739) opened to sterile field. 14:02:02 Heparin Bolus 1000 units I.V. was administered by Shawnee Montes RN; use d for procedure; Verbal order read back and verified. 14:17:13 CHOICE PT Extra Support J 300cm guide wire (2795002M4) opened to steril e field. 14:21:54 Nitroglycerin IC/IA 350 mcg I.A. was administered by Delio Roy MD; used for procedure; Verbal order read back and verified. 14:41:25 SHEATH 6FR [place] (ZWE181) opened to sterile field. 14:43:36 EXOSEAL 6Fr (EX600) opened to sterile field. 14:44:01 Procedure ended.(Physican Out) 14:45:02 Fluoroscopy time 54.40 minutes. 14:45:07 Fluoroscopy dose: 571 mGy 14:45:07 Flurop Dose total: 571 14:45:25 SEE ANESTHESIA NOTE FOR POST PROCEDURE ANESTHESIA 14:45:54 Post-op/insertion site Right Femoral artery dressed using a 4 x 4 and Tegaderm. 14:46:21 Post right femoral artery:stable 14:46:25 Post Procedure Pulses reassessed and unchanged 14:50:01 Contrast amount:Isovue 300 120ml. 14:54:40 Report given to [facility]. 14:54:44 Patient transfered to [facility] with Bed. 14:55:25 Vital chart was stopped Intervention Summary Intervention Notes Time ActionType Lesion and Equipment Used Action# Pressure Duration Attributes 13:14:00 Inflate Undefined1 AGATHA CROSS ELITE 1 0 00:00 balloon 1.5 X 40 ([id number]) 13:30:11 Inflate Undefined1 NANOCROSS ELITE 2 0 00:00 balloon 2.5X40 ([id number]) 13:41:00 Inflate Undefined1 CHOCOLATE 3.0 x 3 0 00:00 balloon 120 x 150 balloon ([id number]) 13:56:33 Inflate Undefined1 SHOCKWAVE BALLOON 4 0 00:00 balloon 6 X 60 ([id number]) Device Usage Item Name Manufacture Quantity Catalog Number [facility] Part [facility] rent Minimal Lot# / Charge Number Stock Stock Serial# Code Tegaderm 4 x 4 3M 1 1626W 209709 676298 988 973 5 (1626W) Sterile Cardinal 1 [id number] 630956 997 527 5 Angiographic Pack Health ACIST Manifold Acist Medical 1 08895 969496 301810 985 209 5 (77006) Systems Inc Bag Decanter Microtek 1 2001S 573779 99248 982 929 5 (2001S) Medical Inc. ACIST Syringe Acist Medical 1 78700 533903 235129 984 763 20 (97603) Systems Inc ACIST Hand Acist Medical 1 35932 237109 044706 985 194 5 Control (83199) Systems [employer] TUBING Contrast [facility] Medical 1 EHY305T 253040 448251 999 232 5 Injection High Pressure (BYJ926H) GLIDE WIRE ANGLE Terumo 1 ZI2844 350126 287061 999 270 5 260cm (GQ1791) DOUBLE ENDED Cook Medical 1 D85830 203888 999 963 1 39853387 GUIEDWIRE DOC 145CM (P40965) SHEATH 5FR Terumo 1 NBR511 456252 358086 993 086 5 [place] (LBO547) Micropuncture VSI VSI VASCULAR 1 7266V 971150 999 046 5 4FR kit SOLUTIONS CHOICE PT Extra [place] 2 [id number] 784017 874029 998 683 5 [id number] Support J 300cm Scientific 22324915 guide wire (1226534S9) Angiodynamics Angiodynamics 1 16378716 094929 077891 999 849 5 Omniflush 5Fr 65cm (90670567) INFLATOR [facility] Medical 1 RS5657 510173 559943 999 505 5 [id number] BasixTOUCH (YU7270) TORQUE DEVICE [place] 1 TD01 745480 225733 999 104 5 PLASTIC .038 ( Scientific TD01) GLIDE CATHETER Terumo 1 CG507 765517 999 526 5 5FR ANGLED 65cm (CG507) SHEATH 6FR Terumo 1 RSR01 761483 46455 999 428 5 Destination (RSR01) ROADRUNNER .035 [employer] 1 V73062 186805 512027 999 682 5 [id number] 260 glide wire (U86162) GUIDEWIRE V-18 [place] 1 429609 159687 999 980 1 44348542 CONTROL Scientific ([id number]) Navicross Support Terumo 1 JN01163 636005 178426 999 966 5 Straight .035 150cm catheter (IU01330) CXI SUPPORT .018 [employer] 1 Y73031 066118 590872 999 981 5 150CM ANG catheter (T42741) AGATHA CROSS ELITE Medtronic 1 [id number] 889704 89399 999 998 1 1.5 X 40 ([id number]) NANOCROSS ELITE Medtronic 1 [id number] 274860 905100 999 996 1 2.5X40 ([id number]) CHOCOLATE 3.0 x Medtronic 1 [id number] O 099751 751882 999 982 5 120 x 150 balloon TW ([id number]) SHOCKWAVE BALLOON SHOCKWAVE 1 [id number] 504840 1909135 999 990 1 6 X 60 MEDICAL ([id number]) STOPCOCK 3-Way [employer] 1 X36513 297993 3935 999 619 5 34707994 Large Bore (F49981) SHEATH 6FR Terumo 1 TMM714 692531 302054 994 308 40 [place] (MZC921) EXOSEAL 6Fr Cardinal 1 EX600 472487 072937 995 435 10 84387114 (EX600) Health Signature Audit [place] Stage Time Signature Unsigned Intra-Procedure 05/24/2020 Brandin 2:55:21 PM [place] RT (R) (CV) [facility] [address] [place] [address]
[~2020-05-23 04:41] MED LIST changes: -PROSCAR5 MG; +PROSCAR5 MG PO
[2020-05-23] MEDS ORDERED: BAYER CHEWABLE81 MG PO (05:01)
[2020-05-23] MEDS ORDERED: ULTRAM50 MG PO (05:01)
[2020-05-23] MEDS ORDERED: LISINOPRIL-HCT1 EAC4 PO (05:01)
[2020-05-23] MEDS ORDERED: NORVASC10 MG PO (05:01)
[2020-05-23 05:30] LABS: BASOPHILS 0.3 % (0-2); EOSINOPHILS 2.1 % (0-7); HEMATOCRIT 42.9 % (42.0-54.0); HEMOGLOBIN 14.1 g/dL (13.5-17.5); IMMATURE GRANULOCYTES 0.3 % (0-5); LYMPHOCYTE ABS# 2.36 10x3/uL (1.32-3.57); LYMPHOCYTES 32.8 % (15-50); MCH 31.2 pg (26.0-34.0); MCHC 32.9 g/dL (31.0-37.0); MCV 94.9 fL (80.0-100.0); MEAN PLATELET VOLUME 9.5 fL (7.4-10.4); MONOCYTES 8.2 % (2-11); NEUTROPHIL ABS# 4.06 10x3/uL (1.78-5.38); NEUTROPHILS 56.3 % (40-80); PLATELET COUNT 284 10x3/uL (130-400); RBC 4.52 10x6/uL (4.20-6.10); WBC 7.2 10x3/uL (4.8-10.8)
[2020-05-23 05:40] LABS: CALCIUM 9.3 mg/dL (8.5-10.1); CHLORIDE - SERUM 99 mmol/L (98-107); GLUCOSE 101 mg/dL (74-106); POTASSIUM - SERUM 3.4 mmol/L (3.5-5.1); SODIUM 138 mmol/L (136-145); eGFR NON AFRICAN AMERICAN 49 mL/min (90-120)
[2020-05-23 05:44] LABS: CALC OSMOLALITY 282 mosm/kg (275-300); CREATININE - SERUM 1.5 mg/dL (0.6-1.3); UREA NITROGEN 33 mg/dL (7-18)
[2020-05-23 06:05] LABS: ALKALINE PHOSPHATASE 83 U/L (30-120); ALT (SGPT) 15 U/L (10-68); BILIRUBIN - TOTAL 0.26 mg/dL (0.2-1.3); CREATINE KINASE 365 UL (21-232); PRO BNP 149 pg/mL (0-125); PROTEIN - SERUM 8.2 g/dL (6.4-8.2); TROPONIN-I < 0.017 ng/mL (0.000-0.060)
[2020-05-23 06:07] LABS: CKMB 2.7 U/L (0.0-3.6)
--- NOTE | 2020-05-23 06:10 | NUR ---
RECIEVED REPORT FROM ER. ARRIVED TO FLOOR ON STRETCHER. ALERT AND ORIENTED X4. UP AD TEA. DENIES ANY NEEDS. ASSESSMENT COMPLETED.
--- NOTE | 2020-05-23 07:30 | NUR ---
Lying in bed, awake/alert/oriented, T/R self ad carlos, cont of B/B with BRPs per self ad carlos, denies pain/other discomfort at this time, does c/o nerve pain" in feet (pt removed socks to alleviate and refused pain meds), call light/phone within reach, NPO at this time for test/procedure.
--- NOTE | 2020-05-23 13:37 | NUR ---
Off unit for procedure in IR.
--- NOTE | 2020-05-23 16:15 | NUR ---
HEAPRING GTT STARTED AT 7 ML/HR TO RIGHT FOREARM. DRESSING SEEN TO LEFT GROIN, C/D/I. TO LAY FLAT X 4 HOURS. CALL LIGHT IN REACH.
--- NOTE | 2020-05-23 21:19 | NUR ---
PT IN BED, AAO X 3, RESP EVEN AND UNLABORED, NO DISTRESS NOTED, CL IN REACH, SR UP X 2.
--- NOTE | 2020-05-24 03:41 | NUR ---
I have reviewed this patient and I concur with the Shift Assessment completed by the Licensed Practical Nurse today this shift.
[2020-05-24 04:01] LABS: BASOPHILS 0.3 % (0-2); EOSINOPHILS 2.1 % (0-7); HEMATOCRIT 37.9 % (42.0-54.0); HEMOGLOBIN 12.6 g/dL (13.5-17.5); IMMATURE GRANULOCYTES 0.2 % (0-5); LYMPHOCYTE ABS# 1.72 10x3/uL (1.32-3.57); LYMPHOCYTES 27.8 % (15-50); MCHC 33.2 g/dL (31.0-37.0); MCV 93.1 fL (80.0-100.0); MEAN PLATELET VOLUME 9.6 fL (7.4-10.4); MONOCYTES 6.1 % (2-11); NEUTROPHIL ABS# 3.92 10x3/uL (1.78-5.38); NEUTROPHILS 63.5 % (40-80); PLATELET COUNT 272 10x3/uL (130-400); RBC 4.07 10x6/uL (4.20-6.10); RDW 14.9 % (11.5-14.5); WBC 6.2 10x3/uL (4.8-10.8)
[2020-05-24 04:13] LABS: ALBUMIN 3.3 g/dL (3.4-5.0); ALKALINE PHOSPHATASE 66 U/L (30-120); ALT (SGPT) 14 U/L (10-68); BILIRUBIN - TOTAL 0.25 mg/dL (0.2-1.3); CALC OSMOLALITY 281 mosm/kg (275-300); CALCIUM 8.8 mg/dL (8.5-10.1); CARBON DIOXIDE 29.1 mmol/L (21.0-32.0); CHLORIDE - SERUM 103 mmol/L (98-107); GLUCOSE 92 mg/dL (74-106); MAGNESIUM - SERUM 1.8 mg/dL (1.8-2.4); PROTEIN - SERUM 6.9 g/dL (6.4-8.2); SODIUM 139 mmol/L (136-145); UREA NITROGEN 25 mg/dL (7-18)
[2020-05-24 04:21] LABS: eGFR NON AFRICAN AMERICAN 79 mL/min (90-120)
[2020-05-24 04:46] VITALS: BP 115/58
--- NOTE | 2020-05-24 07:30 | NUR ---
Lying in bed, awake/alert/oriented, T/R self ad carlos, cont of B/B with BRPs per self ad carlos, Heparin drip cont at 7mL/hr, denies pain/other discomfort at this time, does c/o restless legs, no other issues observed at this time, call light/phone within reach, remains NPO for IR procedure, no s/s of acute distress observed.
[2020-05-24 08:25] VITALS: BP 115/68
--- NOTE | 2020-05-24 09:20 | NUR ---
APTT IS 53.9, per protocol, turned Heparin Drip up to 8mL/hr, call light/phone within reach, cont to be npo for procedure per IR, no s/s of acute distress observed.
[2020-05-24 11:40] VITALS: BP 115/68
--- NOTE | 2020-05-24 11:50 | NUR ---
Off unit for procedure in IR
[2020-05-24 12:55] VITALS: Ht 182.9 cm; Wt 58.1 kg
--- NOTE | 2020-05-24 15:15 | NUR ---
Returned to room at this time, had LLe fragmentqation and angioplasty of CF, SFA, Popliteal, has a 6F exoseal to rt groin, PTT target range is 60-80, heparin drip is at 7mL/hr, tori APTT in 3 hrs.
--- NOTE | 2020-05-24 15:50 | NUR ---
Pt will not remain flat as instructed, gave morphine as ordered.
--- NOTE | 2020-05-24 16:00 | NUR ---
Pt confused and combative, will not remain flat, took a swing at this nurse and a relocation commissioner, called PATRICIA Garcia who ordered Ativan 0.5mg IV, before nurse could give he is seeing pt and changes the order to Haldol 2mg IM, pt cont to be confused and combative and refuses to lie flat as advised.
--- NOTE | 2020-05-24 16:39 | NUR ---
HALDOL GIVEN IM TO LEFT GUTTOCK WITH PATRICIA ORLANDO, JENY, RN, BC JOSHUA, OG CHOUDHURY AND MYSELF PRESENT. BILATERAL WRIST RESTRAINTS PLACED ALONG WITH ONE TO LEFT LEG TO KEEP STRAIGHT FROM PROCEDURE TODAY. BILATERAL PULSE TO FEET WEAK, ALSO CHECKED BY PATRICIA ORLANDO. WILL MONITOR CLOSELY WITH RESTRAINTS ON.
--- NOTE | 2020-05-24 16:46 | NUR ---
2 MG GIVEN, 3 MG WASTED WITH BC FERMIN PRESENT
--- NOTE | 2020-05-24 16:50 | NUR ---
Pt brother here to sit at bedside.
--- NOTE | 2020-05-24 17:00 | NUR ---
Dr. Roy rounding on pt, gives nurse order to increase Heparin Drip after 1 hour to 9mL/hr and recheck APTT at 1999.
[2020-05-24 17:04] VITALS: BP 137/70
--- NOTE | 2020-05-24 19:30 | NUR ---
PT IN BED, EYES CLOSED, RESP EVEN AND UNLABORED, NO DISTRESS NOTED, CL IN REACH. SR UP X 2.
[2020-05-24 20:00] VITALS: BP 147/70
--- NOTE | 2020-05-24 20:00 | NUR ---
DR PACK CALLED AND REQUESTED PROTOCOL BE FOLLOWED ON HEPARIN DRIP AT THIS TIME.
--- NOTE | 2020-05-24 20:30 | NUR ---
PT RESTRAINTS REMOVED AT THIS TIME, WILL CONTINUE TO MONITOR.
[2020-05-24 23:40] VITALS: BP 139/63
[2020-05-25 05:07] VITALS: BP 127/51
--- NOTE | 2020-05-25 06:18 | NUR ---
I have reviewed this patient and I concur with the Shift Assessment completed by the Licensed Practical Nurse today this shift.
[2020-05-25 06:44] LABS: ALBUMIN 3.4 g/dL (3.4-5.0); ANION GAP 11.6 mmol/L (8-16); BILIRUBIN - TOTAL 0.49 mg/dL (0.2-1.3); CALCIUM 9.2 mg/dL (8.5-10.1); CARBON DIOXIDE 30.1 mmol/L (21.0-32.0); CREATININE - SERUM 1.1 mg/dL (0.6-1.3); MAGNESIUM - SERUM 2.1 mg/dL (1.8-2.4); POTASSIUM - SERUM 3.7 mmol/L (3.5-5.1); PROTEIN - SERUM 7.1 g/dL (6.4-8.2)
--- NOTE | 2020-05-25 07:20 | NUR ---
Lying in bed with eyes closed, respirations slow/deep/even, rouses slightly with verbal stimulus but does follow directions, T/R self ad carlos, cont of B/B with BRPs ad carlos, denies pain/other discomfort at this time, states "just let me sleep", call light/phone/water within reach, no s/s of acute distress at this time.
[2020-05-25 07:27] LABS: BASOPHILS 0.5 % (0-2); EOSINOPHILS 1.7 % (0-7); HEMATOCRIT 38.7 % (42.0-54.0); HEMOGLOBIN 12.7 g/dL (13.5-17.5); IMMATURE GRANULOCYTES 0.2 % (0-5); LYMPHOCYTE ABS# 1.41 10x3/uL (1.32-3.57); LYMPHOCYTES 23.3 % (15-50); MCH 31.1 pg (26.0-34.0); MCHC 32.8 g/dL (31.0-37.0); MCV 94.6 fL (80.0-100.0); MEAN PLATELET VOLUME 9.8 fL (7.4-10.4); MONOCYTES 7.4 % (2-11); NEUTROPHIL ABS# 4.05 10x3/uL (1.78-5.38); NEUTROPHILS 66.9 % (40-80); PLATELET COUNT 249 10x3/uL (130-400); RBC 4.09 10x6/uL (4.20-6.10); RDW 14.9 % (11.5-14.5); WBC 6.1 10x3/uL (4.8-10.8)
[2020-05-25 08:03] VITALS: BP 153/69
[2020-05-25 11:45] VITALS: BP 153/69
[2020-05-25 12:01] VITALS: BP 109/49
[2020-05-25 15:58] VITALS: BP 90/40
[2020-05-25 21:14] VITALS: BP 107/56
[2020-05-26 01:47] VITALS: BP 121/70
[2020-05-26 05:09] LABS: BASOPHILS 0.4 % (0-2); EOSINOPHILS 4.1 % (0-7); HEMATOCRIT 37.2 % (42.0-54.0); HEMOGLOBIN 12.2 g/dL (13.5-17.5); IMMATURE GRANULOCYTES 0.2 % (0-5); LYMPHOCYTE ABS# 1.91 10x3/uL (1.32-3.57); LYMPHOCYTES 34.1 % (15-50); MCH 30.6 pg (26.0-34.0); MCHC 32.8 g/dL (31.0-37.0); MCV 93.2 fL (80.0-100.0); MEAN PLATELET VOLUME 9.7 fL (7.4-10.4); MONOCYTES 7.1 % (2-11); NEUTROPHIL ABS# 3.03 10x3/uL (1.78-5.38); NEUTROPHILS 54.1 % (40-80); PLATELET COUNT 220 10x3/uL (130-400); RBC 3.99 10x6/uL (4.20-6.10); RDW 14.5 % (11.5-14.5); WBC 5.6 10x3/uL (4.8-10.8)
[2020-05-26 05:28] LABS: ALBUMIN 3.2 g/dL (3.4-5.0); ALKALINE PHOSPHATASE 67 U/L (30-120); ALT (SGPT) 16 U/L (10-68); BILIRUBIN - TOTAL 0.35 mg/dL (0.2-1.3); CALC OSMOLALITY 283 mosm/kg (275-300); CALCIUM 8.7 mg/dL (8.5-10.1); CARBON DIOXIDE 27.5 mmol/L (21.0-32.0); CHLORIDE - SERUM 101 mmol/L (98-107); GLUCOSE 95 mg/dL (74-106); PROTEIN - SERUM 6.4 g/dL (6.4-8.2); SODIUM 139 mmol/L (136-145); eGFR NON AFRICAN AMERICAN 79 mL/min (90-120)
[2020-05-26 05:29] LABS: UREA NITROGEN 28 mg/dL (7-18)
[2020-05-26 05:50] VITALS: BP 109/54
[2020-05-26 07:34] VITALS: BP 90/43
--- NOTE | 2020-05-26 10:43 | CN ---
PATIENT NAME:SANFORD GUALLPA MEDICAL RECORD: [id number] : 54 LOCATION:[facility] D.2114 ADMIT DATE: 05/23/20 ACCOUNT: [id number] CONSULTING PHYSICIAN: KEVIN ESCAMILLA MD REFERRING PHYSICIAN: CLAU CARLISLE MD DATE OF CONSULTATION: 05/25/2020 IDENTIFYING DATA: The patient is 70 years old and he was admitted to the hospital on a voluntary basis. CHIEF COMPLAINT: Leg pain. 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 This blockage has been corrected or improved through the use of interventional radiology. Around the time of the procedure or more specifically I suppose after the procedure, the patient was confused, combative and hallucinatory. He was in 4-point restraints and received Haldol. Currently, the patient is very sleepy. He is arousable, but falls asleep quickly and is difficult to interview. He has no real recollection of these events. He denies psychotic symptoms, denies a psychiatric history and denies substance abuse. He identifies the year as and the month is May, but cannot remember the name of the hospital he is in. He is puzzled, thinks for a minute, says there are 2 in town, but he is not sure which one, but he cannot name either of them. ASSESSMENT: Delirium. PLAN: The episode that precipitated this consult appears to have passed. The patient tells me he has no psychiatric history and no history of alcoholism and indeed his vital signs are not consistent with an alcohol withdrawal delirium. I am going to treat him with a very low dose of a antipsychotic medication that may be discontinued over the next couple of days. If his condition improves, I am also going to taper his Librium and would recommend additional tapering tomorrow in the next day. TRANSINT:[id number] Voice Confirmation ID: [id number] DOCUMENT ID: [id number] KEVIN ESCAMILLA MD at 1043 CC: [id number] DICTATION DATE: 05/25/20 1523 ERGONOMIST: 05/25/20 2238 ADM IN [place] [address] [place] [address]
[2020-05-26 11:47] VITALS: BP 102/57
[2020-05-26] MEDS ORDERED: PLAVIX75 MG PO (13:38)
[2020-05-26] MEDS ORDERED: NICODERM CQ1 EAC3 TOPICAL (14:38)
--- NOTE | 2020-05-26 15:32 | NUR ---
PROVIDED VERBAL AND WRITTEN DISCHARGE TEACHING TO PT, WHO VERBALIZED UNDERSTANDING REGARDING TEACHING. D/C RT FA IV WITH CATHETERT TIP INTACT. PT WAITING ON RIDE, WILL NOTIFY NURSE WHEN READY FOR WHEELCHAIR.
--- NOTE | 2020-05-26 15:48 | NUR ---
PT LEFT UNIT VIA WHEELCHAIR, WITH ALL BELONGINGS, NAD NOTED.
--- NOTE | 2020-05-26 18:38 | MORECARE ---
CASE MANAGEMENT DISCHARGE SUMMARY PATIENT: SANFORD GUALLPA UNIT: [id number] ADM DATE: 05/23/20 AGE: 70 : 54 SEX: M ROOM/BED: D.[facility] AUTHOR: ZEV,DOC PHYSICIAN: REFERRING PHYSICIAN: CLAU CARLISLE MD DATE OF SERVICE: 05/26/20 Case Management Discharge Planning Summary DCP REVIEW SUMMARY ANTICIPATED D/C DATE: 05/26/2020 EXPECTED LOS : 3 CASE STATUS: DCP Initiated INITIAL REVIEW: 05/23/2020 INITIAL REVIEWER: Missael Bill FINAL DISCHARGE DISPOSITION: : FINAL REVIEWER: FINAL REVIEW DATE: DCP Focus Questions & Answers QUESTION: ANSWER : PATIENT: SANFORD GUALLPA ENCOUNTER: [id number] MEDICAL RECORD#: [id number] ADMISSION DATE: 05/23/2020 DISCHARGE DATE: 05/26/2020 ATTENDING MD: CLAU CORONADO : AGE: 70 MARITAL STATUS: S DC PLAN ID: [id number] FACILITY: [facility] PRINTED ON: 05/26/20 18:37 CT All edits/amendments must be made on the electronic document DICTATION DATE: 05/26/201836 CANDY WAFFLE ASSEMBLER: YULIET 05/26/201836 RPT#: [id number] DC DATE:05/26/20 STATUS: DIS IN [facility] [address] [place] [address] END OF REPORT
--- NOTE | 2020-05-26 18:50 | MORECARE ---
CASE MANAGEMENT DISCHARGE SUMMARY PATIENT: SANFORD GUALLPA UNIT: [id number] ADM DATE: 05/23/20 AGE: 70 : 54 SEX: M ROOM/BED: D.3164 AUTHOR: AVANI BROTHERS PHYSICIAN: REFERRING PHYSICIAN: CLAU CARLISLE MD DATE OF SERVICE: 05/26/20 Case Management Discharge Planning Summary DCP REVIEW SUMMARY ANTICIPATED D/C DATE: 05/26/2020 EXPECTED LOS : 3 CASE STATUS: DCP Initiated INITIAL REVIEW: 05/23/2020 INITIAL REVIEWER: Missael Bill FINAL DISCHARGE DISPOSITION: : FINAL REVIEWER: FINAL REVIEW DATE: DCP Focus Questions & Answers DCP Evaluation QUESTION: ANSWER Patient gives permission to discuss discharge plans with: (name, relationship and number) : Katie baldwin, Patient's ability to cope with chronic illness : d. No chronic illness Patient's current cognitive status: : *Oriented to person, place, situation, time and present Family / Caregiver's ability to cope with chronic illness: : a. Adequate (ability to meet patient's medical needs, ensures patient attends medical appts.) Patient and/or caregiver agree upon recommended discharge plan? : Yes Physical Status: : Independent with ADL's Family / Caregiver's ability to cope with chronic illness: : a. Adequate (ability to meet patient's medical needs, ensures patient attends medical appts.) Functional screen assessment: : Basic needs can adequately be met by self Does the patient have the ability to pay for or attain post discharge needs / services? : Yes Living Arrangements: : Home Alone with Support Is there a likelihood that the patient will require additional services to return to the preadmission environment? : No Equipment needed for post hospitalization: : None Baseline cognitive status: : *Oriented to person, place, situation, time and present Patient with capacity for self-care or can be cared for in same environment as prior to hospitalization? : Yes Physical environment modification needed / anticipated for discharge: : No Medication Management: : Patient states can afford medications Medication Management: : Patient states can read and understand medication labels Pharmacy name(s): : [facility] Does Patient have transportation to get home and to follow-up medical appointments when discharged from the hospital? : Yes Would patient like to participate in any Care Coordination programs (if applicable): : Not applicable Does the patient have electricity at home? : Yes Does the patient have running water in their house? : Yes Equipment in use: : None Mental health screen: : No mental health history DCP Re-evaluation QUESTION: ANSWER Would patient like to participate in any Care Coordination programs (if applicable): : Not applicable PATIENT: SANFORD GUALLPA ENCOUNTER: [id number] MEDICAL RECORD#: [id number] ADMISSION DATE: 05/23/2020 DISCHARGE DATE: 05/26/2020 ATTENDING MD: CLAU CORONADO : AGE: 70 MARITAL STATUS: S DC PLAN ID: [id number] FACILITY: [facility] PRINTED ON: 05/26/20 18:49 CT All edits/amendments must be made on the electronic document DICTATION DATE: 05/26/201848 DIRECTORY ASSISTANCE OPERATOR: YULIET 05/26/201848 RPT#: [id number] DC DATE:05/26/20 STATUS: DIS IN [facility] [address] [place] [address] END OF REPORT
--- NOTE | 2020-05-27 17:22 | MORECARE ---
CASE MANAGEMENT DISCHARGE SUMMARY PATIENT: SANFORD GUALLPA UNIT: [id number] ADM DATE: 05/23/20 AGE: 70 : 52 SEX: M ROOM/BED: D.2114 AUTHOR: AVANI BROTHERS PHYSICIAN: REFERRING PHYSICIAN: CLAU CARLISLE MD DATE OF SERVICE: 05/27/20 Case Management Discharge Planning Summary COMMENTS ENTERED DATE: 05/26/20 18:49 CT COMMENT TYPE: Discharge Planning REVIEWER: Missael Bill CM met with patient to complete DC plan and to evaluate needs. Patient lives alone independently but has family support and help. Patient stated that his home is safe and has electricity and running water. Patient stated that he has no problems paying for medications and he fills his medications at the [facility]. Patient stated that his primary care physician is at the [facility]. At discharge, the patient plans to return home and feels this is a safe discharge. CM discussed availability of home health, rehab services, and medical equipment. Patient declined HHS, SNF, IPR, and DME. Patient voiced no other needs at this time and is satisfied with DC plan. Transportation provider at discharge will be with his sister, Katie Bahena, . DC IMM delivered, explained, signed by the patient, and placed in chart. Signed form also left with the patient. CM will continue to follow and will assist as needed with dc plans/needs. DCP REVIEW SUMMARY ANTICIPATED D/C DATE: 05/26/2020 EXPECTED LOS : 3 CASE STATUS: DCP Initiated INITIAL REVIEW: 05/23/2020 INITIAL REVIEWER: Missael Bill FINAL DISCHARGE DISPOSITION: 01 : Home or Self Care (Routine Discharge) FINAL REVIEWER: Missael Bill FINAL REVIEW DATE: 05/27/2020 DCP Focus Questions & Answers DCP Evaluation QUESTION: ANSWER Family / Caregiver's ability to cope with chronic illness: : a. Adequate (ability to meet patient's medical needs, ensures patient attends medical appts.) Patient gives permission to discuss discharge plans with: (name, relationship and number) : sisterKatie, Patient's ability to cope with chronic illness : d. No chronic illness Patient's current cognitive status: : *Oriented to person, place, situation, time and present Patient and/or caregiver agree upon recommended discharge plan? : Yes Physical Status: : Independent with ADL's Family / Caregiver's ability to cope with chronic illness: : a. Adequate (ability to meet patient's medical needs, ensures patient attends medical appts.) Functional screen assessment: : Basic needs can adequately be met by self Does the patient have the ability to pay for or attain post discharge needs / services? : Yes Living Arrangements: : Home Alone with Support Is there a likelihood that the patient will require additional services to return to the preadmission environment? : No Equipment needed for post hospitalization: : None Baseline cognitive status: : *Oriented to person, place, situation, time and present Patient with capacity for self-care or can be cared for in same environment as prior to hospitalization? : Yes Physical environment modification needed / anticipated for discharge: : No Medication Management: : Patient states can afford medications Medication Management: : Patient states can read and understand medication labels Pharmacy name(s): : [facility] Does Patient have transportation to get home and to follow-up medical appointments when discharged from the hospital? : Yes Would patient like to participate in any Care Coordination programs (if applicable): : Not applicable Does the patient have electricity at home? : Yes Does the patient have running water in their house? : Yes Equipment in use: : None Mental health screen: : No mental health history DCP Re-evaluation QUESTION: ANSWER Would patient like to participate in any Care Coordination programs (if applicable): : Not applicable PATIENT: SANFORD GUALLPA ENCOUNTER: [id number] MEDICAL RECORD#: [id number] ADMISSION DATE: 05/23/2020 DISCHARGE DATE: 05/26/2020 ATTENDING MD: CLAU CORONADO : AGE: 70 MARITAL STATUS: S DC PLAN ID: [id number] FACILITY: [facility] PRINTED ON: 05/27/20 17:22 CT All edits/amendments must be made on the electronic document DICTATION DATE: 05/27/201721 SURVEYOR MINE: YULIET 05/27/201721 RPT#: [id number] DC DATE:05/26/20 STATUS: DIS IN [facility] [address] [place] [address] END OF REPORT
== END 2020-05-26 15:49 | disposition home or self-care (01) | DRG 253 ==
LOC: D.ER 04:41 → D.M2 04:59
PROVIDERS: Family Medicine; Radiology Vascular & Interventional Radiology; ADMIT Emergency Medicine; ATTEND Emergency Medicine
PROC: 047K3ZZ Dilation of Right Femoral Artery, Percutaneous Approach (ICD-10-PCS; 2020-05-23)
PROC: 047C3ZZ Dilation of Right Common Iliac Artery, Percutaneous Approach (ICD-10-PCS; 2020-05-23)
PROC: 047L3ZZ Dilation of Left Femoral Artery, Percutaneous Approach (ICD-10-PCS; principal; 2020-05-23 14:17)
PROC: 047N3ZZ Dilation of Left Popliteal Artery, Percutaneous Approach (ICD-10-PCS; 2020-05-24)
PROC: 047L3ZZ Dilation of Left Femoral Artery, Percutaneous Approach (ICD-10-PCS; 2020-05-24)
DX: I70.213 Atherosclerosis of native arteries of extremities with intermittent claudication, bilateral legs (principal); Z68.1 Body mass index [BMI] 19.9 or less, adult; I10 Essential (primary) hypertension; R41.0 Disorientation, unspecified; R63.6 Underweight